=== PATIENT | female | born 1985 | race Caucasian/White ===

== ENCOUNTER 2022-06-23 17:45 | Emergency (ER) | payer MEDICAID ==
[~2022-06-23] VITALS: Ht 154.9 cm; Wt 54.4 kg
--- NOTE | 2022-06-23 23:00 | NUR ---
Patient eloped from facility. ER physician notified.
== END 2022-06-24 01:43 | disposition left against medical advice (07) ==
LOC: ER 17:45
DX: Z53.21 Procedure and treatment not carried out due to patient leaving prior to being seen by health care provider (principal)

== ENCOUNTER 2022-06-24 17:14 | Emergency (ER) | payer MEDICAID ==
[~2022-06-24] VITALS: Ht 160 cm; Wt 53.5 kg
[2022-06-24] MEDS ORDERED: KETOROLAC TROMETHAMINE 15 MG INJ IVP ONE (18:00)
[2022-06-24] MEDS ORDERED: diphenhydrAMINE 25 MG CAP PO ONE ×2 (18:00→18:01)
[2022-06-24] MEDS ORDERED: IV NORMAL SALINE 1000 ML BAG IV ONE (18:00)
[2022-06-24] MEDS ORDERED: PROCHLORPERAZINE EDISYLATE 10 MG/2 ML VIAL IV ONE (18:00)
[2022-06-24] MEDS ORDERED: PROCHLORPERAZINE EDISYLATE 10 MG/2 ML VIAL ONE (18:01)
[2022-06-24] MEDS ORDERED: KETOROLAC TROMETHAMINE 15 MG INJ ONE (18:05)
--- NOTE | 2022-06-24 18:27 | NUR ---
Urine collected and sent to LAB.
[2022-06-24 18:36] LABS: *URINE HCG, QUAL NEGATIVE (NEGATIVE)
--- NOTE | 2022-06-24 19:16 | NUR ---
IV removed. Catheter intact and site benign. Pressure and 4x4 gauze applied to site. No bleeding noted.
[2022-06-24 19:17] VITALS: BP 105/64
--- NOTE | 2022-06-24 19:17 | NUR ---
Patient discharged to home in stable condition. Written and verbal after care instructions given. Patient verbalizes understanding of instructions. Stressed follow up or return to ER for worsening s/s.
== END 2022-06-24 19:17 | disposition home or self-care (01) ==
LOC: ER 17:14
DX: G43.909 Migraine, unspecified, not intractable, without status migrainosus (principal); R11.0 Nausea
CPT/HCPCS: 99284; 96374; 96361; 96375; 84703; Q0163; J1885; J0780; J7040; A4663